=== PATIENT | female | born 1955 ===

== ENCOUNTER 2023-10-29 06:03 | Day surgery (SDC) | payer BC, SELFPAY ==
[2023-10-17 06:48] VITALS: BMI 29.1
[2023-10-17 08:52] LABS: Hemoglobin 13.9 g/dL (12.0-16.0); Mean Corp Hgb Conc. 34.8 g/dL (33.0-37.0); Mean Corpuscular Volume 83.3 fL (81.0-99.0); Mean Platelet Volume 11.4 fL (7.4-10.4); Platelet Count 158 10^3/uL (130-400); Red Cell Dist. Width 12.8 % (11.5-14.5); White Blood Cell Count 5.2 10^3/uL (4.8-10.8)
[2023-10-17 10:36] LABS: Blood Urea Nitrogen 13 mg/dl (7-17); Calcium 9.4 mg/dl (8.4-10.2); Carbon Dioxide 24 mmol/L (22-30); Chloride 106 mmol/L (98-107); Estimated Creatinine Clearance 70 ml/min; Glucose 83 mg/dl (70-99); Potassium 4.6 mmol/L (3.5-5.1); Sodium 140 mmol/L (135-145); eGFR > 60.00
[2023-10-29] VITALS (10 sets, daily range): BP systolic 114–144; BP diastolic 50–88; BMI 29.1
[2023-10-29] MEDS: NORMOSOL-R 1000 IV (06:36)
[2023-10-29] MEDS: MOTRIN 600 MG PO (10:45)
--- NOTE | 2023-10-29 13:59 | OR.RPT ---
Operative Report
Operative Report
PREOPERATIVE DIAGNOSIS:
1. Stress urinary incontinence
POSTOPERATIVE DIAGNOSIS:
1. Stress urinary incontinence
PROCEDURE:
1. Retropubic midurethral sling
2. Cystoscopy
ASSISTANTS:� None
ANESTHESIA:� General anesthesia
ESTIMATED BLOOD LOSS:� 10cc
SPECIMENS:� None
COMPLICATIONS:� None
FINDINGS:� Intraoperative cystoscopy revealed normal bladder mucosa throughout.� No evidence of cystotomy, sutures, lacerations, lesions, or mesh.� There was normal efflux of urine from bilateral ureteral orifices.� Normal urethra.
INDICTATIONS:� The patient has bothersome urinary incontinence.� Preoperative urodynamic testing revealed stress urinary incontinence with urethral hypermobility.� Risks, benefits, indications and alternatives of the procedure were reviewed with the
patient.� Risks reviewed include bleeding, infection, damage to bladder, ureter urethra, bowel, blood vessels, nerves, mesh complications, post-operative urinary retention and post-operative urinary incontinence.� All questions answered and informed
consent obtained.
PROCEDURE:� On the day of surgery the patient was identified in the preoperative waiting area.� Consents were again reviewed.� The patient was taken to the operating room.� Pneumatic compression devices were placed on the lower extremities
bilaterally for DVT prophylaxis.� Ancef 2 grams IV was administered for antibiotic prophylaxis.� General anesthesia was administered without difficulty.� The patient was positioned into the dorsal lithotomy position and pressed and draped in the
usual sterile fashion.� Lopez catheter was placed into the bladder to drain it.
The midurethral retropubic sling was performed as follows: Two Alices were placed on the anterior vaginal mucosa at the level of the bladder neck and 1 cm from the urethral meatus, respectively.� This area of midurethral vaginal mucosa was then
infiltrated with 1% lidocaine with [id number] epinephrine.� A midline incision was made in the vaginal mucosa between the two Allis clamps using a scalpel.� The vaginal mucosa was dissected free from the underlying pubocervical fascia and urethra
using Metzenbaum scissors to the level of the inferior pubic rami bilaterally.� The retropubic sling trocars were brought onto the field.� The right trocar was placed in the left vaginal dissection, below the inferior pubic rami and then passed
behind and around the pubic symphysis and exited the anterior abdominal wall 2 cm from the midline.� This was repeated on the right side.� The lopez catheter was then removed and the cystoscopy was performed with the above noted findings.� The
bladder was drained and the lopez catheter was replaced.� Ends of the sling were pulled out through the anterior abdominal wall incisions.� The sling was adjusted to allow a curved Vee to be passed between the urethra and the midurethral sling
mesh material.� The excess mesh was trimmed at the abdominal incisions, which were closed with Dermabond.� The vaginal incision was closed with 2-0 Vicryl in a running continuous fashion.� Vaginal packing was not placed.
Sponge, lap and needle counts were correct x 2.� I, Dr. Estrada was scrubbed and present throughout the procedure.� The patient was awakened and sent to the PACU in stable condition.�
== END 2023-10-29 11:05 | disposition home or self-care (01) ==
LOC: SDS 06:03
PROVIDERS: ATTENDING PHYSICIAN Obstetrics & Gynecology; FAMILY PHYSICIAN Internal Medicine
DX: N39.3 Stress incontinence (female) (male) (principal)
CPT/HCPCS: 57288; 36415; 80048; 85027; 93005; C1771; J1580